=== PATIENT | male | born 1975 | race Caucasian/White ===

== ENCOUNTER 2017-12-31 00:09 | Inpatient (IN) | payer OTHER ==
[~2017-12-31] VITALS: Ht 180.3 cm; Wt 75.7 kg
[2017-12-31 00:15] VITALS: Ht 180.3 cm; Wt 75.7 kg
[2017-12-31 01:12] LABS: CALCIUM 9.5 mg/dL (8.5-10.1); CARBON DIOXIDE 25.6 mmol/L (21-32); CHLORIDE SERUM 107 mmol/L (98-107); CREATININE SERUM 0.9 mg/dL (0.7-1.3); GFR1 > 60 mL/min; GLUCOSE SERUM 105 mg/dL (74-106); POTASSIUM SERUM 3.5 mmol/L (3.5-5.1); SODIUM SERUM 144 mmol/L (136-145)
[2017-12-31 01:25] LABS: ALBUMIN 3.9 g/dL (3.4-5.0); ALKALINE PHOSPHATASE 87 U/L (46-116); ALT/SGPT 215 U/L (16-63); AST/SGOT 181 U/L (15-37); BILIRUBIN TOTAL 0.2 mg/dL (0.20-1.00); FREE T4 0.79 ng/dL (0.76-1.46); LIPASE 225 IU/L (73-393); TOTAL PROTEIN, SERUM 7.7 g/dL (6.4-8.2)
[2017-12-31 03:01] LABS: microscopic required? NO
[2017-12-31 03:09] LABS: urine erythrocyte NEGATIVE (NEGATIVE)
[2017-12-31 03:23] LABS: AMPHETAMINE QUAL UR NONE DETECTED (See below)
[2017-12-31] MEDS ORDERED: GABAPENTIN300 M4 PO (05:06)
[2017-12-31] MEDS ORDERED: WEL75 PO (05:06)
[2017-12-31] MEDS ORDERED: BUSPIRONE HCL15 MG PO (05:07)
[2017-12-31] MEDS ORDERED: MIRTAZAPINE15 M2 PO (05:07)
[2017-12-31] MEDS ORDERED: DIAZEPAM5 MG PO (09:14)
[2017-12-31 11:01] VITALS: BP 154/100
[2017-12-31] MEDS ORDERED: DISULFIRAM500 MG PO (11:21)
[2017-12-31 16:50] VITALS: BP 112/72
[2017-12-31 21:27] VITALS: BP 132/78
[2018-01-01 04:50] VITALS: BP 145/84
[2018-01-01 06:55] VITALS: BP 140/89
[2018-01-01 08:06] LABS: BASOPHIL % 0.6 % (0-2); PLATELET COUNT 191 x10^3mcL (130-400); RED CELL DISTRIBUTION WIDTH 14.2 % (11.5-14.5)
[2018-01-01 09:29] LABS: CALCIUM 8.1 mg/dL (8.5-10.1); CARBON DIOXIDE 27.6 mmol/L (21-32); CHLORIDE SERUM 106 mmol/L (98-107); CREATININE SERUM 0.9 mg/dL (0.7-1.3); GFR1 > 60 mL/min; GLUCOSE SERUM 80 mg/dL (74-106); PHOSPHOROUS 2.9 mg/dL (2.5-4.9); POTASSIUM SERUM 4.3 mmol/L (3.5-5.1); SODIUM SERUM 139 mmol/L (136-145)
[2018-01-01 17:00] VITALS: BP 135/102
[2018-01-01 20:10] VITALS: BP 109/74
[2018-01-02 06:09] VITALS: BP 143/99
[2018-01-02 10:01] VITALS: BP 136/98
[2018-01-02 12:31] VITALS: BP 133/103
[2018-01-02 14:15] VITALS: BP 112/78
[2018-01-02 17:38] VITALS: BP 132/92
[2018-01-02 21:57] VITALS: BP 146/61
[2018-01-03 08:03] VITALS: BP 130/94
[2018-01-03 11:55] VITALS: BP 138/98
[2018-01-03 18:24] VITALS: BP 122/86
[2018-01-03 21:12] VITALS: BP 130/84
[2018-01-03 22:21] VITALS: BP 130/84
== END 2018-01-04 01:45 | DRG 812 ==
LOC: ED 00:09 → DU 09:17 → MU 09:17 → DU 01-01 12:20
PROVIDERS: Emergency Medicine; Internal Medicine
DX: T50.992A Poisoning by other drugs, medicaments and biological substances, intentional self-harm, initial encounter (principal); G92 Toxic encephalopathy; F33.2 Major depressive disorder, recurrent severe without psychotic features; F10.229 Alcohol dependence with intoxication, unspecified; F10.239 Alcohol dependence with withdrawal, unspecified; Z88.8 Allergy status to other drugs, medicaments and biological substances; R47.81 Slurred speech; Y90.0 Blood alcohol level of less than 20 mg/100 ml; Y92.89 Other specified places as the place of occurrence of the external cause
CPT/HCPCS: 83880; 84439; 90658; G0480; J2060; J2405; J3490; J7030